=== PATIENT | male | born 1970 | race Caucasian/White ===

== ENCOUNTER 2018-12-07 16:47 | Emergency (ER) | payer MEDICAID ==
[~2018-12-07] VITALS: Ht 165.1 cm; Wt 130.2 kg
--- NOTE | 2018-12-07 17:05 | NUR ---
[id number], MECHANICAL FALL, C/O LEFT FOOT PAIN, WHEELCHAIR BOUND. AAOX4, VSS. DENIES NORTH, DIZZINESS, N/V OR ANY OTHER DISCOMFORT @ THIS TIME. PT SEEN & EVAL'D BY NORMAN OLIVAS & WILL CONT TO MONITOR.
[2018-12-07] MEDS ORDERED: MORPHINE SULFATE INJ 4 MG/ML DISP.SYRIN ONE (18:00)
[2018-12-07] MEDS ORDERED: ONDANSETRON HCL/PF 4 MG/2 ML VIAL ONE (18:00)
[2018-12-07] MEDS: ONDANSETRON HCL/PF 4 MG/2 ML VIAL IV ONE (18:11)
[2018-12-07] MEDS: MORPHINE SULFATE INJ 2 MG/ML DISP.SYRIN IV ONE (18:13)
--- NOTE | 2018-12-07 18:15 | NUR ---
MEDICATED FOR PAIN PER ERMD ORDER. PT GOOD WELL.
[2018-12-07] MEDS: ACETAMINOPHEN 325 MG TABLET PO ONE (22:06)
--- NOTE | 2018-12-07 22:08 | NUR ---
Patient discharged to home in stable condition. Written and verbal after care instructions given. Patient verbalizes understanding of instruction. IV removed. Catheter intact and site benign. Pressure and 4x4 applied to site. No bleeding noted.
[2018-12-07 22:11] VITALS: BP 135/96
--- NOTE | 2018-12-07 22:12 | NUR ---
ILDA SHORT LEG POSTERIOR SPLINT PLACED BY EMT, PT GOOD WELL W/ GOOD CMS.
== END 2018-12-07 22:13 | disposition home or self-care (01) ==
LOC: ER 16:55
DX: S82.52XA Displaced fracture of medial malleolus of left tibia, initial encounter for closed fracture (principal); S82.51XA Displaced fracture of medial malleolus of right tibia, initial encounter for closed fracture; I10 Essential (primary) hypertension; W18.39XA Other fall on same level, initial encounter; Y93.89 Activity, other specified; Y92.89 Other specified places as the place of occurrence of the external cause; Y99.8 Other external cause status
CPT/HCPCS: 29515; 73600; 73610 ×2; 73620; 73630 ×2; 96374; 96375; 99283; J2270; J2405